=== PATIENT | female | born 1960 | race Caucasian/White ===

== ENCOUNTER 2021-07-21 09:10 | Day surgery (SDC) | payer OTHER, SELFPAY ==
[~2021-07-21] VITALS: Ht 154.9 cm; Wt 70.3 kg
[2021-07-21] MEDS ORDERED: fentaNYL citrate 0.05 MG/ML VIAL ONE (10:39)
[2021-07-21] MEDS ORDERED: MIDAZOLAM 5 MG/5 ML VIAL ONE (10:39)
[2021-07-21] MEDS ORDERED: LIDOCAINE 2% 100 MG/5 ML UJET TP ONE (10:39)
[2021-07-21] MEDS ORDERED: fentaNYL citrate 0.05 MG/ML VIAL IVP ONE (14:10)
[2021-07-21] MEDS ORDERED: MIDAZOLAM 2 MG/2 ML VIAL IVP ONE (14:10)
== END 2021-07-21 12:10 | disposition home or self-care (01) ==
LOC: MMU 09:10 → MDS 09:10
PROVIDERS: ATTEND Internal Medicine Gastroenterology
DX: Z12.11 Encounter for screening for malignant neoplasm of colon (principal); K62.89 Other specified diseases of anus and rectum; K52.9 Noninfective gastroenteritis and colitis, unspecified; I10 Essential (primary) hypertension; E78.00 Pure hypercholesterolemia, unspecified; E11.9 Type 2 diabetes mellitus without complications; Z79.84 Long term (current) use of oral hypoglycemic drugs; Z79.899 Other long term (current) drug therapy; Z20.822 Contact with and (suspected) exposure to COVID-19
CPT/HCPCS: 45378; 87426; J2250; J3010